=== PATIENT | male | born 1990 | race Two or more races ===

== ENCOUNTER 2018-07-22 14:33 | Emergency (ER) | payer MEDICAID ==
[~2018-07-22] VITALS: Ht 162.6 cm; Wt 80.9 kg
[2018-07-22] MEDS ORDERED: AMOX1TAB15 PO (14:46)
[2018-07-22] MEDS ORDERED: DSS100 PO (14:46)
[2018-07-22] MEDS ORDERED: HYDR-4061 PO (14:46)
[2018-07-22] MEDS ORDERED: HYDROmorphone 2 MG/ML SYRINGE IM ONE (16:15)
[2018-07-22 17:44] VITALS: BP 124/74
== END 2018-07-22 17:46 | disposition home or self-care (01) ==
LOC: EMS 14:35
DX: L02.31 Cutaneous abscess of buttock (principal)
CPT/HCPCS: 96372; 99283; J1170